=== PATIENT | male | born 1975 | race Caucasian/White ===

== ENCOUNTER 2019-07-15 06:58 | Inpatient (IN) | payer OTHER ==
[~2019-07-15] VITALS: Ht 175.3 cm; Wt 90.0 kg
[2019-07-15] MEDS ORDERED: pantoprazole 40 MG vial IV ONE (07:30)
[2019-07-15] MEDS ORDERED: normal saline 1000ML IV soln IV ONE (07:30)
[2019-07-15 07:50] LABS: BASOPHILS # (AUTO) 0.1 X10'3 (0-0.2); BASOPHILS % (AUTO) 1.1 % (0-1); EOSINOPHILS # (AUTO) 0.2 X10'3 (0-0.9); EOSINOPHILS % (AUTO) 3.8 % (0-6); HEMATOCRIT 46.9 % (42.0-52.0); HEMOGLOBIN 15.9 g/dl (14.0-17.9); LYMPHOCYTES # (AUTO) 1.7 X10'3 (1.1-4.8); LYMPHOCYTES % (AUTO) 28.4 % (21-51); MEAN CORPUSCULAR HEMOGLOBIN 30.4 PG (27.0-31.0); MEAN CORPUSCULAR VOLUME 89.6 FL (78-98); MEAN PLATELET VOLUME 8.6 FL (7.4-10.4); MONOCYTES # (AUTO) 0.6 X10'3 (0-0.9); MONOCYTES % (AUTO) 9.2 % (2-12); NEUTROPHILS # (AUTO) 3.5 X10'3 (1.8-7.7); NEUTROPHILS % (AUTO) 57.5 % (42-75); PLATELET COUNT 259 X10'3 (140-440); RED BLOOD COUNT 5.23 X10'6 (4.70-6.10); WHITE BLOOD COUNT 6.1 X10'3 (4.5-11.0)
[2019-07-15 08:00] LABS: PARTIAL THROMBOPLASTIN TIME 24 SECONDS (22-32)
[2019-07-15 08:01] LABS: ALANINE AMINOTRANSFERASE 61 U/L (12-78); ALBUMIN 4.2 G/DL (3.4-5.0); ALBUMIN/GLOBULIN RATIO 1.3 (1.1-1.5); ALKALINE PHOSPHATASE 56 IU/L (46-116); ANION GAP 6 (8-16); ASPARTATE AMINO TRANSFERASE 33 U/L (10-37); BILIRUBIN,TOTAL 0.2 MG/DL (0.1-1.0); BLOOD UREA NITROGEN 15 MG/DL (7-18); BUN/CREATININE RATIO 14.7 (5.4-32.0); CALCIUM 9.4 MG/DL (8.5-10.1); CHLORIDE 108 MMOL/L (99-107); CREATININE 1.02 MG/DL (0.60-1.10); GLUCOSE 122 MG/DL (70-104); SODIUM 144 MMOL/L (135-145); TOTAL CARBON DIOXIDE 30.3 MMOL/L (24-32); TOTAL PROTEIN 7.5 G/DL (6.4-8.2); eGFR 79 ML/MIN
[2019-07-15] MEDS: pantoprazole 40MG/NS 100ML BAG 100 ML IV SCH ×3 (08:01→21:01)
[2019-07-15] MEDS ORDERED: ondansetron/PF 4mg/2ml inj IV PRN (09:15)
[2019-07-15] MEDS ORDERED: morphine 2 MG/ML inj. syringe IV PRN ×2 (09:15)
[2019-07-15] MEDS ORDERED: magnesium hydroxide 30ml (MOM) UD suspension PO PRN (09:15)
[2019-07-15] MEDS ORDERED: acetaminophen 325mg tablet PO PRN ×2 (09:15)
[2019-07-15] MEDS ORDERED: mag hydrox/Alum hydrox/simeth 30ml oral suspension PO PRN ×2 (09:15→13:20)
[2019-07-15] MEDS ORDERED: metoclopramide 5 mg/ml inj IV PRN (09:15)
[2019-07-15] MEDS ORDERED: HYDROcodone/acetaminophen 10/325mg tab PO PRN (09:15)
[2019-07-15] MEDS ORDERED: HYDROcodone/acetaminophen 5mg/325mg tablet PO PRN (09:15)
[2019-07-15 10:19] LABS: CLARITY,URINE CLOUDY (Clear); COLOR,URINE YELLOW (Yellow); GLUCOSE, URINE NEGATIVE (Neg); KETONES,URINE NEGATIVE (Neg); LEUKOCYTE ESTERASE ,URINE NEGATIVE (Neg); NITRITES, URINE NEGATIVE (Neg); OCCULT BLOOD,URINE NEGATIVE (Neg); PH,URINE 8.5 (4.8-8.0); PROTEIN,URINE NEGATIVE (Neg); UA COLLECTION TYPE CLN CATCH MIDSTREAM; UROBILINOGEN,URINE 0.2 E.U/dL (0.2-1.0)
[2019-07-15 10:26] LABS: AMORPHOUS PHOSPHATES 4+; BACTERIA,URINE NONE SEEN /HPF (Neg); MUCUS STRANDS FEW /LPF (Neg); RBC,URINE NONE SEEN /HPF (0-2); SQUAMOUS EPITHELIAL CELL,UR NONE SEEN /LPF (FEW); WBC,URINE 0-4 /HPF (0-4)
[2019-07-15] MEDS ORDERED: NO HOME MEDS (11:46)
[2019-07-15 11:50] VITALS: BP 138/86
[2019-07-15] MEDS: normal saline 1000ml 1,000 ML IV SCH ×2 (16:01→19:14)
[2019-07-15] MEDS ORDERED: thiamine inj. 100 MG in normal saline 100ml IV soln 100 ML IV ONE (19:05)
[2019-07-15] MEDS ORDERED: LORazepam 1 MG tablet PO PRN (19:05)
[2019-07-15] MEDS ORDERED: LORazepam 2 mg/ml vial IV PRN (19:05)
[2019-07-15 19:27] VITALS: BP 130/89
[2019-07-15] MEDS ORDERED: thiamine 100mg tablet PO SCH (20:00)
[2019-07-15] MEDS ORDERED: folic acid 1mg tablet PO SCH (20:00)
[2019-07-16] MEDS: pantoprazole 40MG/NS 100ML BAG 100 ML IV SCH ×2 (01:21→07:47)
[2019-07-16] MEDS: normal saline 1000ml 1,000 ML IV SCH (05:14)
[2019-07-16 05:25] LABS: BASOPHILS # (AUTO) 0.1 X10'3 (0-0.2); BASOPHILS % (AUTO) 1.8 % (0-1); EOSINOPHILS # (AUTO) 0.3 X10'3 (0-0.9); EOSINOPHILS % (AUTO) 4.3 % (0-6); HEMATOCRIT 43.9 % (42.0-52.0); HEMOGLOBIN 14.9 g/dl (14.0-17.9); LYMPHOCYTES # (AUTO) 1.9 X10'3 (1.1-4.8); LYMPHOCYTES % (AUTO) 30.4 % (21-51); MEAN CORPUSCULAR HEMOGLOBIN 30.8 PG (27.0-31.0); MEAN CORPUSCULAR VOLUME 90.6 FL (78-98); MEAN PLATELET VOLUME 8.5 FL (7.4-10.4); MONOCYTES # (AUTO) 0.5 X10'3 (0-0.9); MONOCYTES % (AUTO) 8.9 % (2-12); NEUTROPHILS # (AUTO) 3.4 X10'3 (1.8-7.7); NEUTROPHILS % (AUTO) 54.6 % (42-75); PLATELET COUNT 213 X10'3 (140-440); RED BLOOD COUNT 4.85 X10'6 (4.70-6.10); RED CELL DISTRIBUTION WIDTH 12.9 % (11.5-14.5); WHITE BLOOD COUNT 6.2 X10'3 (4.5-11.0)
[2019-07-16 05:49] LABS: ALANINE AMINOTRANSFERASE 52 U/L (12-78); ALBUMIN 3.2 G/DL (3.4-5.0); ALBUMIN/GLOBULIN RATIO 1.1 (1.1-1.5); ALKALINE PHOSPHATASE 42 IU/L (46-116); AMYLASE 31 U/L (25-115); ANION GAP 6 (8-16); ASPARTATE AMINO TRANSFERASE 34 U/L (10-37); BILIRUBIN,TOTAL 0.5 MG/DL (0.1-1.0); BLOOD UREA NITROGEN 11 MG/DL (7-18); BUN/CREATININE RATIO 11.1 (5.4-32.0); CALCIUM 8.1 MG/DL (8.5-10.1); CHLORIDE 108 MMOL/L (99-107); CREATININE 0.99 MG/DL (0.60-1.10); GLUCOSE 100 MG/DL (70-104); LIPASE 81 U/L (73-393); PHOSPHORUS 2.9 MG/DL (2.3-4.5); SODIUM 140 MMOL/L (135-145); TOTAL CARBON DIOXIDE 26.2 MMOL/L (24-32); TOTAL PROTEIN 6.1 G/DL (6.4-8.2); eGFR 82 ML/MIN
--- NOTE | 2019-07-16 06:10 | NUR ---
Patient in room [facility]. I have received report from BENJAMIN HOLLEY and had the opportunity to ask questions and assume patient care.
--- NOTE | 2019-07-16 06:28 | NUR ---
Problems reprioritized. Patient report given, questions answered & plan of care reviewed with HAILEY. Addendum: 07/16/19 at 0628 by Olivier Grewal RN Amended: Links added.
[2019-07-16 07:00] VITALS: BP 113/74
[2019-07-16] MEDS ORDERED: multivitamins, therapeutics tablet PO SCH (08:00)
[2019-07-16] MEDS ORDERED: PANT-47 PO (10:43)
--- NOTE | 2019-07-16 11:40 | NUR ---
PATIENT STABLE FOR DISCHARGE, PATIENT TOOK OFF TELE AND TOOK OUT IV ON OWN WITHOUT NURSE PRESENT, EDUCATION GIVEN, PATIENT WALKED OUT BY AIDE TO AN AWAITING CAR WHERE FAMILY MEMBER/ FRIEND WILL TAKE PATIENT HOME
== END 2019-07-16 11:25 | disposition home or self-care (01) | DRG 379 ==
LOC: ER 06:59 → ED HOLD 09:14 → SUR 3N 11:10
PROVIDERS: ADMIT Internal Medicine; ATTEND Internal Medicine
DX: K29.71 Gastritis, unspecified, with bleeding (principal); K21.0 Gastro-esophageal reflux disease with esophagitis
CPT/HCPCS: 36415; 71045; 80053; 81001; 82150; 82948; 83690; 83735; 84100; 85025; 85610; 85730; 86885; 86900; 86901; 87081; 93005; 99285; C9113; G0378; J7030